=== PATIENT | female | born 1990 | race Caucasian/White ===

== ENCOUNTER 2017-08-04 20:55 | Emergency (ER) | payer OTHER ==
[~2017-08-04] VITALS: Ht 154.9 cm; Wt 70.2 kg
[2017-08-04 22:16] VITALS: BP 121/69
== END 2017-08-04 22:16 | disposition home or self-care (01) ==
LOC: EME 20:55
DX: Z20.5 Contact with and (suspected) exposure to viral hepatitis (principal); Z57.8 Occupational exposure to other risk factors; Y99.0 Civilian activity done for income or pay; Z33.1 Pregnant state, incidental
CPT/HCPCS: 99281; 99283

== ENCOUNTER 2017-09-01 15:27 | Inpatient (IN) | payer OTHER ==
[~2017-09-01] VITALS: Ht 154.9 cm; Wt 70.3 kg
[2017-09-01] VITALS (9 sets, daily range): BP systolic 112–125; BP diastolic 58–80
[2017-09-01 16:33] LABS: BASOPHIL (%) 0.2 % (0-1); EOSINOPHIL (%) 0.4 % (0-5); EOSINOPHIL COUNT 0.1 K/uL (0-0.3); HEMATOCRIT 37.7 % (36.0-46.0); HEMOGLOBIN 12.5 G/DL (11.9-15.5); IMMATURE GRANULOCYTE (%) 0.7 % (0.0-0.7); LYMPHOCYTE (%) 11.9 % (15-42); LYMPHOCYTE COUNT 1.7 K/uL (1.0-2.8); MCH 29.6 PG (29.0-34.0); MCHC 33.2 G/DL (30.0-36.0); MCV 89.1 FL (83-99); MONOCYTE (%) 6.3 % (3-12); MONOCYTE COUNT 0.9 K/uL (0-0.8); NEUTROPHIL (%) 80.5 % (45-76); NEUTROPHIL COUNT 11.2 K/uL (1.8-6.4); PLATELET COUNT 217 K/uL (156-360); RBC DIS.WIDTH-CV 13.9 % (11.8-14.6); RBC DIS.WIDTH-SD 45.1 % (39-53); RED BLOOD COUNT 4.23 M/uL (3.80-5.20); WHITE BLOOD COUNT 13.9 K/uL (4.1-10.2)
[2017-09-01 16:51] LABS: AMPHETAMINE NEGATIVE (500 ng/mL); BARBITURATES NEGATIVE (200 ng/mL); BENZODIAZEPINES NEGATIVE (150 ng/mL); BUPRENORPHINE NEGATIVE (10 ng/mL); COCAINE NEGATIVE (150 ng/mL); METHADONE NEGATIVE (200 ng/mL); METHAMPHETAMINE NEGATIVE (500 ng/mL); OPIATES (MORPHINE) NEGATIVE (100 ng/mL); OXYCODONE NEGATIVE (100 ng/mL); PHENCYCLIDINE NEGATIVE (25 ng/mL); PROPOXYPHENE NEGATIVE (300 ng/mL); THC CANNABINOIDS NEGATIVE (50 ng/mL); TRICYCLIC ANTIDEPRESSANTS NEGATIVE (300 ng/mL)
[2017-09-01] MEDS ORDERED: IBUPROFEN800 MG PO (23:35)
[2017-09-02 00:12] VITALS: BP 122/60
[2017-09-02 00:48] VITALS: BP 112/69
[2017-09-02 01:54] VITALS: BP 117/68
[2017-09-02 07:30] VITALS: BP 96/68
[2017-09-02 15:00] VITALS: BP 114/68
[2017-09-02 23:15] VITALS: BP 107/63
== END 2017-09-03 15:00 | disposition home or self-care (01) | DRG 775 ==
LOC: LDRP-OP → 2WEST 15:30 → LDRP-OP 10-08 09:40
PROVIDERS: Advanced Practice Midwife
PROC: 10E0XZZ Delivery of Products of Conception, External Approach (ICD-10-PCS; principal; 2017-09-01)
DX: O80 Encounter for full-term uncomplicated delivery (principal); Z3A.39 39 weeks gestation of pregnancy; Z37.0 Single live birth; Z23 Encounter for immunization
CPT/HCPCS: 85025